=== PATIENT | female | born 1950 | race Hispanic/Latino ===

== ENCOUNTER → 2018-07-22 | Day surgery (SDC) | payer MEDICARE ==
--- NOTE | 2018-07-16 15:09 | Diagnostic Imaging Report ---
EXAM: XR CHEST 2 VIEWS DATE: 07/16/2018 2:46 PM INDICATION: Pre-op, breast abnormality COMPARISON: 09/03/2015 radiograph FINDINGS: Lines and Tubes: None Heart and Mediastinum: Sternotomy wires, aortic calcifications stable. Heart is prominent with presumed stable ventricular prominence. Lungs and Pleura: No significant pleural effusion, pneumothorax, or focal consolidation. Bones and Soft Tissues: No acute findings. IMPRESSION: 1. Overall stable exam. There is presumed ventricular prominence, likely right ventricle. This could be better evaluated with echocardiogram. Signed by: Dr. Baljit Loyola MD on 07/16/2018 3:06 PM
[2018-07-16 15:10] LABS: BASOPHILS % 0.7 % (0.0-1.0); EOSINOPHILS # (AUTO) 0.1 (0.0-0.4); EOSINOPHILS % 1.8 % (0.0-6.0); HEMATOCRIT 35.6 % (34.2-44.1); HEMOGLOBIN 11.8 g/dL (12.0-16.0); LYMPHOCYTES # (AUTO) 1.6 (1.0-3.2); LYMPHOCYTES % 29.1 % (18.0-39.1); MEAN CORPUSCULAR HEMOGLOBIN 28.6 pg (28-32); MEAN CORPUSCULAR HGB CONC 33.1 g/dL (31-35); MEAN CORPUSCULAR VOLUME 86.2 fL (81-99); MONOCYTES # (AUTO) 0.4 (0.2-0.8); MONOCYTES % 7.7 % (4.4-11.3); NEUTROPHILS # (AUTO) 3.3 (2.1-6.9); NEUTROPHILS % 60.5 % (38.7-80.0); PLATELET COUNT 191 x10e3/uL (140-360); RED BLOOD COUNT 4.13 x10e6/uL (3.6-5.1); RED CELL DISTRIBUTION WIDTH 13.8 % (11.7-14.4)
[2018-07-16 15:28] LABS: ANION GAP 12.9 mmol/L (8-16); BLOOD UREA NITROGEN 14 mg/dL (7-26); BUN/CREATININE RATIO 18 (6-25); CALCIUM 9.5 mg/dL (8.4-10.2); CARBON DIOXIDE 24 mmol/L (22-29); CHLORIDE 103 mmol/L (98-107); CREATININE, SERUM 0.78 mg/dL (0.57-1.11); EST GLOMERULAR FILTRATION RATE > 60 ML/MIN (60-); GLUCOSE 99 mg/dL (74-118); POTASSIUM 3.9 mmol/L (3.5-5.1); SODIUM 136 mmol/L (136-145)
[~2018-07-22] MED LIST: ACETAMINOPHEN 1000 MG/100 ML IV ONE; ASPIR 8181 MG PO; ATORVASTATIN CA20 MG PO; BUPIVACAINE 0.5%/EPI 30 ML SDV INJ ONE; CILOSTAZOL50 M1 PO; DEXAMETHASONE SOD PHOS INJ 4 MG/ML VIAL ONE; DICYCLOMINE HCL10 MG PO; KETOROLAC TROMETHAMINE 30 MG/ML VIAL ONE; LIDOCAINE HCL 1% LOCAL INJ 20 ML VIAL ONE; LIDOCAINE HCL 2% LOCAL INJ 5 ML SDV VIAL INJ ONE; LOSARTAN POTAS100 MG PO; NITROGLYCERIN0.4 MG SL; ONDANSETRON HCL INJ 2 MG/ML VIAL ONE; PEPCID20 MG PO; PROPOFOL IV EMULSION 10 MG/ML 20 ML VIAL ONE; REGLAN10 MG PO; SEVOFLURANE INHAL SOLN 250 ML PEN BTL ONE; VIBERZI PO; Z.0.BENTYL20 MG PO; Z.0.CRESTOR20 MG PO; Z.0.PLAVIX75 MG PO; Z.0.RANITIDINE HCL30 PO; Z.0.TOPROL XL100 MG PO; Z.0.ZOLOFT50 MG PO
--- OUTSIDE RECORDS SUMMARY | 2018-07-22 11:19 | XMS REPORT ---
Author [facility] Address Unknown Phone Unavailable Care Team Providers Care Tobacco Checkout Clerk Name Role Phone Cathy MTZ Unavailable Unavailable Payers Payer Name Policy Type Policy Number Effective Date Expiration Date Problems This patient has no known problems. Allergies, Adverse Reactions, Alerts Allergy Name Allergy Type Status Severity Reaction(s) Onset Date Inactive Date Treating Clinician Comments No Known Drug Intolerances DA Active U 2009-03-31 00:00:00 Medications This patient has no known medications. Results Test Description Test Time Test Comments Text Results Atomic Results Result Comments CHEST 2 VIEWS 2018-07-16 15:05:00 [place] [address] Patient Name: NIRALI BARLOW MR #: [id number] : 1950 Age/Sex: 67/F Req #: [id number] Adm Physician: Ordered by: LISA MTZ MD Report #: [id number] Location: OR Room/Bed: Procedure: [id number] DX/CHEST 2 VIEWS Exam Date: 07/16/18 Exam Time: 1452 REPORT STATUS: Signed EXAM: XR CHEST 2 VIEWS DATE: 07/16/2018 2:46 PM INDICATION: Pre-op, breast abnormality COMPARISON: 09/03/2015 radiograph FINDINGS: Lines and Tubes: None Heart and Mediastinum: Sternotomy wires, aortic calcifications stable. Heart is prominent with presumed stable ventricular prominence. Lungs and Pleura: No significant pleural effusion, pneumothorax, or focal consolidation. Bones and Soft Tissues: No acute findings. IMPRESSION: 1. Overall stable exam. There is presumed ventricular prominence, likely right ventricle. This could be better evaluated with echocardiogram. Signed by: Dr. Baljit Loyola MD on 07/16/2018 3:06 PM Dictated By: BALJIT LOYOLA MD [id number] Transcribed By: WILBERT on 07/16/18 1500 COPY TO: LISA MTZ MD
--- NOTE | 2018-07-22 15:13 | Operative Report ---
DATE OF PROCEDURE: July 22, 2018 PREOPERATIVE DIAGNOSIS: Papilloma of the right breast. POSTOPERATIVE DIAGNOSIS: Papilloma of the right breast. OPERATION PERFORMED: Right partial mastectomy with preoperative ultrasound-guided needle localization and intraoperative specimen mammography. ANESTHESIA: General. COMPLICATIONS: None. ESTIMATED BLOOD LOSS: Minimal. DESCRIPTION OF PROCEDURE: With the patient lying in bed in the supine position under good general anesthesia, after having undergone a needle localization of the area in question in the right breast, the right breast was then prepped with Betadine solution and draped in the usual manner. The area overlying the mass was then infiltrated with 1/4 percent Marcaine with epinephrine. An incision was made in the periareolar region and carried down through the subcutaneous tissue. The wire was then identified in the subcutaneous tissue and followed to the area in question. The area in question was then slowly and carefully removed from the subareolar area, and the specimen was sent for a specimen mammography, which showed that the area in question was contained within the specimen. The whole area was then thoroughly irrigated. Perfect hemostasis was ascertained. The breast tissue was then reapproximated with interrupted sutures of 2-0 chromic, and the skin was closed with subcuticular 5-0 Vicryl. Benzoin, Steri-Strips and dressings were applied. The sponge, lap and needle count was correct. The patient tolerated the procedure well and returned to the recovery room in stable condition. Job#: [id number]
[2018-07-22 15:45] VITALS: BP 122/59
--- NOTE | 2018-07-23 08:19 | Diagnostic Imaging Report ---
THIS REPORT HAS BEEN AMENDED. #[id number] - [id number] NEEDLE LOCALIZATION: 07/22/2018 PROCEDURE DESCRIPTION: The patient had an ultrasound biopsy of the right breast, at 11:00. Mammograms show a biopsy marker clip at the lesion location. Preoperative localization was requested. Written informed written consent was obtained from the patient, and a formal time out was taken to confirm patient identity and procedure to be perfomed. Using standard full barrier sterile technique, 1% lidocaine local anesthesia, and mammographic guidance, the biopsy clip was preoperatively localized with a hookwire. Final CC and LM mammograms were obtained to document wire location. A sterile bandage was placed over the wire and the patient was transferred from mammography with no immediate complications noted. Correlation is made to exams dated: 05/12/2018 mammogram, 05/12/2018 ultrasound biopsy, 04/12/2018 mammogram and 04/12/2018 ultrasound - [facility]. IMPRESSION: NEEDLE LOCALIZATION Follow-up with ACR/ACS guidelines. Kulwant brady/jocelyn:07/22/2018 15:37:22 Assisted Living Home Director: Carrie ARMENTA(Bill)(Gary), [facility] [id number] AMENDMENT: 08/02/2018 Kulwant Rowan Jr., D.O. Pathology result is negative for malignancy. No residual papilloma present.
--- NOTE | 2018-07-23 08:19 | Diagnostic Imaging Report ---
#[id number] - [id number] SPECIMEN: 07/22/2018 Correlation is made to exams dated: 07/22/2018 localization - [facility] and 05/12/2018 mammogram - [facility]. The specimen contains the marker clip and the hook wire. IMPRESSION: SPECIMEN Follow-up with ACR/ACS guidelines. Kulwnat Rowan Jr., D.O. cw/:07/22/2018 16:59:01 Divinity Teacher: Carrie ARMENTA(R)(M), [facility]
== END | disposition home or self-care (01) ==
LOC: OR 11:18
PROVIDERS: ATTEND Surgery
DX: D24.1 Benign neoplasm of right breast (principal); I25.810 Atherosclerosis of coronary artery bypass graft(s) without angina pectoris; K21.9 Gastro-esophageal reflux disease without esophagitis; I10 Essential (primary) hypertension; E78.5 Hyperlipidemia, unspecified; R05 Cough; F41.9 Anxiety disorder, unspecified; Z01.812 Encounter for preprocedural laboratory examination; Z01.818 Encounter for other preprocedural examination; Z79.02 Long term (current) use of antithrombotics/antiplatelets; Z79.82 Long term (current) use of aspirin; Z95.1 Presence of aortocoronary bypass graft; Z87.891 Personal history of nicotine dependence
CPT/HCPCS: 19281; 19301; 36415; 71046; 76098; 80048; 85025; 88307; C1769; J0131; J1100; J1885; J2001 ×2; J2405; J2704

== ENCOUNTER → 2021-09-11 | Outpatient (CLI) | payer MEDICARE ==
[~2021-09-11] MED LIST changes: -ACETAMINOPHEN 1000 MG/100 ML IV ONE; -BUPIVACAINE 0.5%/EPI 30 ML SDV INJ ONE; -DEXAMETHASONE SOD PHOS INJ 4 MG/ML VIAL ONE; -KETOROLAC TROMETHAMINE 30 MG/ML VIAL ONE; -LIDOCAINE HCL 1% LOCAL INJ 20 ML VIAL ONE; -LIDOCAINE HCL 2% LOCAL INJ 5 ML SDV VIAL INJ ONE; -ONDANSETRON HCL INJ 2 MG/ML VIAL ONE; -PROPOFOL IV EMULSION 10 MG/ML 20 ML VIAL ONE; -SEVOFLURANE INHAL SOLN 250 ML PEN BTL ONE
== END ==
LOC: MRI 10:23
PROVIDERS: ATTEND Physician Assistant
DX: I71.4 Abdominal aortic aneurysm, without rupture (principal); I70.213 Atherosclerosis of native arteries of extremities with intermittent claudication, bilateral legs; I25.708 Atherosclerosis of coronary artery bypass graft(s), unspecified, with other forms of angina pectoris; E78.00 Pure hypercholesterolemia, unspecified
CPT/HCPCS: 72148

== ENCOUNTER → 2021-09-18 | Outpatient (CLI) | payer MEDICARE ==
[~2021-09-18] MED LIST changes: +IOPAMIDOL 370 MG/ML 200 ML INFUS..BTL INJ ONE; +SODIUM CHLORIDE 0.9% 50ML 50 ML ONE
[2021-09-18 15:17] LABS: BASOPHILS # (AUTO) 0.1 (0.0-0.1); EOSINOPHILS % 0.8 % (0.0-6.0); HEMATOCRIT 41.4 % (34.2-44.1); HEMOGLOBIN 12.9 g/dL (12.0-16.0); LYMPHOCYTES # (AUTO) 1.3 (1.0-3.2); LYMPHOCYTES % 26.4 % (18.0-39.1); MEAN CORPUSCULAR HGB CONC 31.2 g/dL (31-35); MONOCYTES # (AUTO) 0.3 (0.2-0.8); MONOCYTES % 5.1 % (4.4-11.3); NEUTROPHILS # (AUTO) 3.2 (2.1-6.9); NEUTROPHILS % 66.3 % (38.7-80.0); PLATELET COUNT 191 x10e3/uL (140-360); RED CELL DISTRIBUTION WIDTH 14.4 % (11.7-14.4)
[2021-09-18 15:38] LABS: ALBUMIN 4.1 g/dL (3.5-5.0); ALBUMIN/GLOBULIN RATIO 1.1 (0.8-2.0); ANION GAP 13.9 mmol/L (8-16); CALCIUM 9.9 mg/dL (8.4-10.2); CHOL/HDL RATIO 2.9 (3.0-3.6); CREATININE, SERUM 0.76 mg/dL (0.57-1.11); POTASSIUM 3.9 mmol/L (3.5-5.1)
== END ==
LOC: CT 14:42
PROVIDERS: ATTEND Internal Medicine Cardiovascular Disease
DX: I71.4 Abdominal aortic aneurysm, without rupture (principal); I70.213 Atherosclerosis of native arteries of extremities with intermittent claudication, bilateral legs; I25.708 Atherosclerosis of coronary artery bypass graft(s), unspecified, with other forms of angina pectoris; E78.00 Pure hypercholesterolemia, unspecified
CPT/HCPCS: 36415; 74174; 80053; 80061; 85025; Q9967